=== PATIENT | male | born 1975 | race Caucasian/White ===

== ENCOUNTER 2017-01-19 15:30 | Emergency (ER) | payer OTHER ==
[2017-01-19 15:39] VITALS: RESP 16; O2SAT 95
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
[2017-01-19 16:45] VITALS: BP 128/78; PULSE 72; TEMP 98.2
== END 2017-01-19 16:45 | disposition home or self-care (01) ==
DX: S52.615A Nondisplaced fracture of left ulna styloid process, initial encounter for closed fracture (principal); S62.112A Displaced fracture of triquetrum [cuneiform] bone, left wrist, initial encounter for closed fracture; V18.2XXA Unspecified pedal cyclist injured in noncollision transport accident in nontraffic accident, initial encounter
CPT/HCPCS: A4565